=== PATIENT | male | born 1985 | race Caucasian/White ===

== ENCOUNTER 2017-02-05 02:07 | Emergency (ER) | payer MEDICAID ==
[~2017-02-05] VITALS: Ht 195.6 cm; Wt 89.5 kg
[2017-02-05 02:09] VITALS: BP 146/87
[2017-02-05] MEDS ORDERED: LIDOCAINE 1%, 20ML INFIL ONE (02:30)
[2017-02-05] MEDS ORDERED: LIDOCAINE 1%, 20ML ONE (02:42)
== END 2017-02-05 03:24 | disposition home or self-care (01) ==
LOC: ED 02:33
DX: L03.313 Cellulitis of chest wall (principal)
CPT/HCPCS: 10060; 99284

== ENCOUNTER 2017-02-06 07:30 | Emergency (ER) | payer MEDICAID ==
[~2017-02-06] VITALS: Ht 195.6 cm; Wt 88.0 kg
[2017-02-06 07:32] VITALS: BP 144/90
== END 2017-02-06 08:11 | disposition home or self-care (01) ==
LOC: ED 07:50
DX: Z48.01 Encounter for change or removal of surgical wound dressing (principal); F15.129 Other stimulant abuse with intoxication, unspecified
CPT/HCPCS: 99283

== ENCOUNTER 2018-10-17 11:11 | Emergency (ER) | payer MEDICAID ==
[~2018-10-17] VITALS: Ht 195.6 cm; Wt 80.6 kg
[2018-10-17 11:22] VITALS: BP 163/96
[2018-10-17] MEDS ORDERED: NICOTINE 21 MG/24 HR PATCH.TD24 TD ONE (13:30)
[2018-10-17] MEDS ORDERED: NICOTINE 21 MG/24 HR PATCH.TD24 ONE (13:34)
--- NOTE | 2018-10-17 14:15 | NUR ---
MEDICATION REQUEST SENT TO PHARMACY.
[2018-10-17] MEDS ORDERED: FLUORESCEIN OPHTHALMIC 1 MG STRIP LEFTEYE ONE (14:30)
[2018-10-17] MEDS ORDERED: FLUORESCEIN/BENOXINATE 5 ML DROPS LEFTEYE ONE (14:30)
== END 2018-10-17 14:51 | disposition home or self-care (01) ==
LOC: ED 14:45
DX: S06.0X9A Concussion with loss of consciousness of unspecified duration, initial encounter (principal); S02.2XXA Fracture of nasal bones, initial encounter for closed fracture; S02.32XA Fracture of orbital floor, left side, initial encounter for closed fracture; S02.40FA Zygomatic fracture, left side, initial encounter for closed fracture; S89.91XA Unspecified injury of right lower leg, initial encounter; R41.0 Disorientation, unspecified; F17.200 Nicotine dependence, unspecified, uncomplicated; W01.0XXA Fall on same level from slipping, tripping and stumbling without subsequent striking against object, initial encounter; Y93.89 Activity, other specified; Y92.89 Other specified places as the place of occurrence of the external cause; Y99.8 Other external cause status
CPT/HCPCS: 70486; 99284; 99406

== ENCOUNTER 2019-04-17 13:10 | Emergency (ER) | payer MEDICAID ==
[~2019-04-17] VITALS: Ht 193 cm; Wt 80.0 kg
--- NOTE | 2019-04-17 13:44 | NUR ---
HOTEL ASSOCIATE: PT PROVIDED URINE SPECIMAN. SENT TO LAB.
[2019-04-17 13:55] VITALS: BP 119/88
[2019-04-17 14:07] LABS: AMPHETAMINE SCREEN, URINE Negative (Negative); BARBITURATE SCREEN, URINE Negative (Negative); BENZODIAZEPINE SCREEN, URINE Negative (Negative); CANNABINOID SCREEN, URINE Negative (Negative); COCAINE SCREEN, URINE Negative (Negative); METHADONE SCREEN, URINE Negative (Negative); OPIATE SCREEN, URINE Negative (Negative)
[2019-04-17 14:15] LABS: MEAN CORPUSCULAR HEMOGLOBIN 37.7 pg (27.5-34.5); MEAN CORPUSCULAR HGB CONC 33.3 g/dL (33.2-36.2); MEAN CORPUSCULAR VOLUME 113.2 fL (81-97); MEAN PLATELET VOLUME 7.1 fL (7.4-10.4); PLATELET COUNT 265 x10^3/uL (130-400); RED BLOOD COUNT 4.35 x10^6/uL (4.38-5.82); RED CELL DISTRIBUTION WIDTH 15.7 % (9.4-14.8)
[2019-04-17 14:25] LABS: ALBUMIN 4.3 g/dL (3.4-5.0); ANION GAP 6 mmol/L (5-15); CALCIUM 9.1 mg/dL (8.5-10.1); CHLORIDE 105 mmol/L (98-107); CREATININE 0.69 mg/dL (0.7-1.3)
[2019-04-17 14:28] LABS: SALICYLATE LEVEL < 1.7 mg/dL (2.8-20.0)
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
[2019-04-17 14:40] LABS: BASOPHILS # (AUTO) 0.04 x10^3/uL (0-0.1); BASOPHILS % (AUTO) 1 % (0-1); EOSINOPHILS # (AUTO) 0.09 x10^3/uL (0-0.4); EOSINOPHILS % (AUTO) 2 % (1-7); LYMPHOCYTES # (AUTO) 1.93 x10^3/uL (1-3.4); LYMPHOCYTES % (AUTO) 36 % (22-44); MD SCAN; MONOCYTES # (AUTO) 0.59 x10^3/uL (0.2-0.8); MONOCYTES % (AUTO) 11 % (2-9); NEUTROPHILS # (AUTO) 2.74 x10^3/uL (1.8-6.8); NEUTROPHILS % (AUTO) 51 % (42-75)
--- NOTE | 2019-04-17 14:49 | NUR ---
PT JA. AT BEDSIDE. MD BARRY Murray PANTS AND SWEATER. PT AGREEABLE .
--- NOTE | 2019-04-17 15:47 | NUR ---
THROUGHPUT RN: SW TO SEE PT.
--- NOTE | 2019-04-17 16:11 | NUR ---
PT IS YELLING AT STAFF DEMANDING HIS PHONE. HIS CELL PHONE WAS NEVER PUT IN BELONGINGS BAGS OR W PATIENT WHEN BROUGHT IN BY [employer]. SECURITY IS ESCORTING PT OUT OF ED. DC PAPERS GIVEN TO PT. PT IS VERY RUDE STATES "I PAY YOUR SALARY AND I HAVE NEVER BEEN TREATED SO RUDE IN MY LIFE"
== END 2019-04-17 16:17 | disposition home or self-care (01) ==
LOC: ED 16:11
DX: F10.220 Alcohol dependence with intoxication, uncomplicated (principal); Y90.0 Blood alcohol level of less than 20 mg/100 ml
CPT/HCPCS: 36415; 80048; 80307; 82040; 85025; 99283

== ENCOUNTER 2019-05-11 13:03 | Emergency (ER) | payer MEDICAID ==
[~2019-05-11] VITALS: Ht 195.6 cm; Wt 86.0 kg
[2019-05-11 13:11] VITALS: BP 147/99
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
--- NOTE | 2019-05-11 13:30 | NUR ---
PSYCH NURSE ALBARO SPEAKING WITH PT. BREATHALIZER COMPLETED: .394
[2019-05-11 13:32] LABS: BASOPHILS # (AUTO) 0.04 x10^3/uL (0-0.1); BASOPHILS % (AUTO) 1 % (0-1); EOSINOPHILS # (AUTO) 0.11 x10^3/uL (0-0.4); EOSINOPHILS % (AUTO) 2 % (1-7); LYMPHOCYTES # (AUTO) 2.25 x10^3/uL (1-3.4); LYMPHOCYTES % (AUTO) 37 % (22-44); MD NO; MEAN CORPUSCULAR HGB CONC 33.8 g/dL (33.2-36.2); MEAN CORPUSCULAR VOLUME 109.4 fL (81-97); MEAN PLATELET VOLUME 7.2 fL (7.4-10.4); MONOCYTES # (AUTO) 0.51 x10^3/uL (0.2-0.8); MONOCYTES % (AUTO) 9 % (2-9); NEUTROPHILS % (AUTO) 52 % (42-75); PLATELET COUNT 278 x10^3/uL (130-400); RED BLOOD COUNT 4.31 x10^6/uL (4.38-5.82); RED CELL DISTRIBUTION WIDTH 14.1 % (9.4-14.8)
[2019-05-11 13:42] LABS: ALBUMIN 4.3 g/dL (3.4-5.0); ANION GAP 9 mmol/L (5-15); CALCIUM 9.4 mg/dL (8.5-10.1); CHLORIDE 107 mmol/L (98-107); CREATININE 0.71 mg/dL (0.7-1.3); SALICYLATE LEVEL 3.9 mg/dL (2.8-20.0)
--- NOTE | 2019-05-11 13:47 | NUR ---
PT WALKED OUT DOOR WHILE ALBARO IN ROOM SAYING HE IS GOING TO SMOKE A CIGARETTE. AWARE, COMPUTER ARCHITECT DIVINA AWARE. PER ALBARO PT DENIES HE SAID HE WAS SUICIDAL BUT THAT HIS GIRLFRIEND SAID THAT. STATES HE JUST NEEDS RESOURCES.
--- NOTE | 2019-05-11 14:11 | NUR ---
PT HAS NOT RETURNED TO ROOM.
--- NOTE | 2019-05-11 14:12 | NUR ---
MD AWARE PT HAS NOT RETURNED TO ROOM.
[2019-05-11 14:14] LABS: AMPHETAMINE SCREEN, URINE Negative (Negative); BARBITURATE SCREEN, URINE Negative (Negative); BENZODIAZEPINE SCREEN, URINE Negative (Negative); CANNABINOID SCREEN, URINE Negative (Negative); COCAINE SCREEN, URINE Negative (Negative); METHADONE SCREEN, URINE Negative (Negative); OPIATE SCREEN, URINE Negative (Negative)
== END 2019-05-11 14:16 | disposition left against medical advice (07) ==
LOC: ED 14:10
DX: F10.220 Alcohol dependence with intoxication, uncomplicated (principal); R45.851 Suicidal ideations; F32.9 Major depressive disorder, single episode, unspecified; Y90.9 Presence of alcohol in blood, level not specified
CPT/HCPCS: 36415; 80048; 80307; 82040; 85025; 99283

== ENCOUNTER 2020-08-30 14:21 | Emergency (ER) | payer MEDICAID ==
[~2020-08-30] VITALS: Ht 188 cm; Wt 80.0 kg
[2020-08-30 14:24] VITALS: BP 151/97
--- NOTE | 2020-08-30 14:26 | NUR ---
PT BIB EMS FOR SI/ETOH. PT CALLED [facility] AND SAID HE WAS SUCIDAL AND RB TOLD HIM TO CALL 911. "I DONT WISH TO BE RIGHT NOW. BUT I AM HAVING THOUGHTS THAT I MAY WANT TO HURT MYSELF. I DONT FEEL SAFE." PT ALSO ADMITS TO DRINKING A 1/2 LITER OF VODKA TODAY. PT RESTING IN GURNEY. PT BELONGINGS PLACED IN PT BAG AND PLACED IN SECURITY LOCKER. PT IS NOT ON A L2K AT THIS TIME
[2020-08-30 15:28] LABS: MEAN CORPUSCULAR HEMOGLOBIN 36.8 pg (27.5-34.5); MEAN CORPUSCULAR HGB CONC 34.7 g/dL (33.2-36.2); PLATELET COUNT 366 x10^3/uL (130-400); RED BLOOD COUNT 4.63 x10^6/uL (4.38-5.82); RED CELL DISTRIBUTION WIDTH 15.1 % (9.4-14.8)
[2020-08-30 15:31] LABS: MD YES
--- NOTE | 2020-08-30 15:32 | NUR ---
Patient more and more non compliant with medical staff. Cursing, throwing his water bottle, etc. Edith sw to bedside to assess. Edith feel behavior, suicidal threats related to intoxication. SW would like patient to be discharged with information for psychiatric examination when sober. POC reviewed with ERP. ERP would like patient discharged as soon as possible. As soon as patient done with lunch tray he was walked to [facility] where he was provided with a bus pass and given packet of psychiatric resources in [facility].
[2020-08-30 15:34] LABS: ALBUMIN 4.3 g/dL (3.4-5.0); ANION GAP 11 mmol/L (5-15); CALCIUM 8.8 mg/dL (8.5-10.1); CHLORIDE 104 mmol/L (98-107); SALICYLATE LEVEL 5.7 mg/dL (2.8-20.0)
[2020-08-30 15:35] LABS: CREATININE 0.91 mg/dL (0.7-1.3)
[2020-08-30 17:01] LABS: BAND#(MANUAL) 0.07 x10^3/uL; BANDS%(MANUAL) 1 % (0-7); EOS#(MANUAL) 0.28 x10^3/uL (0.0-0.4); EOS% (MANUAL) 4 % (1-7); LYMPH#(MANUAL) 3.01 x10^3/uL (1-3.4); LYMPHS% (MANUAL) 43 % (22-44); MONOS#(MANUAL) 0.56 x10^3/uL (0.3-2.7); MONOS% (MANUAL) 8 % (2-9); REACTIVE LYMPHS # (MANUAL) 0.56 x10^3/uL (0-0); REACTIVE LYMPHS % (MANUAL) 8 % (0-0); SEG#(MANUAL) 2.52 x10^3/uL (1.8-6.8); SEGS% (MANUAL) 36 % (42-75)
[2020-08-30 17:03] LABS: <PLATELET ESTIMATE> ADEQUATE; <PLT MORPHOLOGY> NORMAL PLT MORPH
== END 2020-08-30 15:37 | disposition home or self-care (01) ==
LOC: ED 14:51
DX: F10.120 Alcohol abuse with intoxication, uncomplicated (principal); F17.200 Nicotine dependence, unspecified, uncomplicated; Y90.0 Blood alcohol level of less than 20 mg/100 ml
CPT/HCPCS: 36415; 80048; 80299; 80320; 80329; 82040; 85025; 99283; G0480

== ENCOUNTER 2020-09-20 23:42 | Emergency (ER) | payer MEDICAID ==
[~2020-09-20] VITALS: Ht 177.8 cm; Wt 81.8 kg
[2020-09-21 00:03] VITALS: BP 104/57
--- NOTE | 2020-09-21 00:09 | NUR ---
STATES HE IS HERE VOLUNTARILY FOR DEPRESSION ON/OFF AND SI W/O PLAN. +ETOH 1 QUART VODKA. HX DEPRESSION. ON TRAZODONE. STATES "I NEED TO LEAVE HERE PRETTY SOON. I DON'T THINK YOU FUCKING UNDERSTAND I NEED TO LEAVE". PT BEGAN GETTING AGGRESSIVE IN ROOM AND SMASHING GARAGE DOORS AND SCREAMING. SECURITY AT BEDSIDE. PT DEMANDING TO LEAVE STATES "I'LL FIGHT ANYONE WHO GETS IN MY WAY". SPOKE W/ STEFANO LEYVA WHO STATES PT IS OKAY TO DC. PT PROVIDED W/ CLOTHES. SECURITY REMAINS AT BEDSIDE PT REMAINS AGGRESSIVE W/ STAFF.
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
== END 2020-09-21 00:15 | disposition home or self-care (01) ==
LOC: ED 23:55
DX: F10.229 Alcohol dependence with intoxication, unspecified (principal); Z72.9 Problem related to lifestyle, unspecified; F17.210 Nicotine dependence, cigarettes, uncomplicated; Y90.0 Blood alcohol level of less than 20 mg/100 ml
CPT/HCPCS: 99406

== ENCOUNTER 2020-09-21 00:19 | Emergency (ER) | payer MEDICAID ==
[~2020-09-21] VITALS: Ht 185.4 cm; Wt 81.4 kg
--- NOTE | 2020-09-21 01:15 | NUR ---
PT NOT IN ROOM. CT CONTACTED AND THEY ADVISED THEY HAVE PT.
--- NOTE | 2020-09-21 01:19 | NUR ---
Pertaining to pt's first visit of 09/22/19 I walked by the pt in room 39 as security was arriving to remove him. He was being loud and aggressive with his voice and body language. He was insulting the security guards and calling them "fat". The room was crowded so I left. I glanced over as security removed him through the ambulance bay doors. But saw nothing after that until he was on the ground outside.
[2020-09-21] MEDS ORDERED: BACITRACIN ZINC OINT 500U/GM, 0.9 GM ONE (01:35)
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
[2020-09-21] MEDS ORDERED: NEOSPORIN OINT. PKT 1 PACKET ONE ×2 (01:58)
[2020-09-21 02:05] VITALS: BP 136/65
--- NOTE | 2020-09-21 02:09 | NUR ---
PT ADAMENT ABOUT LEAVING. PT ASKED TO WAIT UNTIL WE AT LEAST HAVE XRAY RESULTS. PT STANDING IN AND WALKING AROUND.
--- NOTE | 2020-09-21 02:26 | NUR ---
PT LEAVING WITHOUT DISCHARGE PAPERWORK OR RESULTS OF XRAYS. PT AMBULATED PAST CHARGE DESK, STEADY GAIT.
== END 2020-09-21 02:28 | disposition left against medical advice (07) ==
LOC: ED 00:39
DX: S00.83XA Contusion of other part of head, initial encounter (principal); S40.211A Abrasion of right shoulder, initial encounter; F10.229 Alcohol dependence with intoxication, unspecified; Z72.9 Problem related to lifestyle, unspecified; W01.0XXA Fall on same level from slipping, tripping and stumbling without subsequent striking against object, initial encounter; Y93.89 Activity, other specified; Y92.89 Other specified places as the place of occurrence of the external cause; Y99.8 Other external cause status; Y90.0 Blood alcohol level of less than 20 mg/100 ml
CPT/HCPCS: 70450; 70486; 72125; 99285